=== PATIENT | male | born 1970 | race Caucasian/White ===

== ENCOUNTER 2017-12-12 20:16 | Emergency (ER) | payer OTHER ==
[~2017-12-12] VITALS: Ht 190.5 cm; Wt 133.4 kg
[~2017-12-12 20:16] MED LIST: ACTOS PO; METF500T6 PO
[2017-12-12 20:21] VITALS: BP_SYST 120
[2017-12-12] MEDS ORDERED: IBUPROFEN 800 MG TABLET PO ONE (21:00)
[2017-12-12] MEDS ORDERED: CYCLOBENZAPRINE HCL 10 MG TABLET (FLEXERIL) PO ONE (21:00)
[2017-12-12 21:50] VITALS: BP_SYST 128
== END 2017-12-12 21:50 | disposition home or self-care (01) ==
LOC: SED 20:16
DX: M25.511 Pain in right shoulder (principal); E11.9 Type 2 diabetes mellitus without complications; I10 Essential (primary) hypertension; Z88.2 Allergy status to sulfonamides
CPT/HCPCS: 73030; 99284